=== PATIENT | male | born 1975 | race Two or more races ===

== ENCOUNTER 2018-02-04 16:06 | Emergency (ER) | payer MEDICAID ==
[~2018-02-04 16:06] MED LIST: ASPI-1471 PO; ATOR20TA65 PO; B.AN1CAP2 PO; CIPR-345 PO; FAMO20TA28 PO; HYDR-4309 PO; HYDR-6016 PO; IBUP800T37 PO; METR-1 PO; ONDA8TAB94 PO
[2018-02-04] MEDS ORDERED: ATRO/SCOPOL/HYOSCY/PB 5 ML ELX PO ONE (16:50)
[2018-02-04] MEDS ORDERED: FAMOTIDINE 10 MG/ML SDV IVP ONE (16:50)
[2018-02-04] MEDS ORDERED: MAG HYD/AL HYD/SIMETH 30ML UDC PO ONE (16:50)
[2018-02-04] MEDS ORDERED: LIDOCAINE 2% VISC SLN 15ML UDC PO ONE (16:50)
[2018-02-04 17:01] LABS: PLATELET COUNT, AUTOMATED 310 K/uL (150-450)
--- NOTE | 2018-02-04 17:46 | RADIOLOGY IMAGING REPORT ---
FACILITY: [facility] - [place] PATIENT NAME: Abdullahi Oliveira : 1975 MR: [id number] V: [id number] EXAM DATE: ORDERING PHYSICIAN: NEHEMIAH MALIN TECHNOLOGIST: Location: [facility] - [place] Patient: Abdullahi Oliveira : 1975 Visit/Account:[id number] Date of Sevice: 02/04/2018 Exam type: ANKLE 3 VIEW MIN RIGHT History: pain after twisting it Comparison: None. Findings: There is moderate soft tissue spine about the right ankle. There is no evidence of acute fracture or dislocation. The ankle mortise appears intact IMPRESSION: 1. Moderate soft tissue swelling about the right ankle although no gross evidence of acute fracture or dislocation Report Dictated By: Medina Clarke MD at 02/04/2018 5:43 PM Report E-Signed By: Medina Clarke MD at 02/04/2018 5:43 PM WSN:[email or web address]
--- NOTE | 2018-02-04 17:46 | RADIOLOGY IMAGING REPORT ---
[place] [facility] [place] NAME: Abdullahi Oliveira : 1975 MR: [id number] V: [id number] EXAM DATE: ORDERING PHYSICIAN: NEHEMIAH MALIN TECHNOLOGIST: Location: [facility] Patient: Abdullahi Oliveira : 1975 Visit/Account:[id number] Date of Sevice: 02/04/2018 Exam type: FOOT 3 VIEW RIGHT History: pain after twisting it Comparison: October 01, 2015. Findings: Minor degenerative changes at the right first MTP joint again seen. There is no evidence of acute fr acture or dislocation involving the right foot. No radiopaque soft tissue foreign body seen IMPRESSION: 1. No acute osteoarticular abnormality right foot is seen Report Dictated By: Medina Clarke MD at 02/04/2018 5:41 PM Report E-Signed By: Medina Clarke MD at 02/04/2018 5:43 PM WSN:[email or web address]
--- NOTE | 2018-02-04 18:05 | ER Report ---
History and Physical Time Seen By MD: 16:50 Hx. of Stated Complaint: patient state he has been having really bad heartburn, when he drinks he feels bubbles in epigastric region and then a burning sensation come up his throat. HPI/ROS CHIEF COMPLAINT: epigastric pain HISTORY OF PRESENT ILLNESS: PT here for evaluation of epigastric pain. Pt states that he has had heart burn on and off for years but this feeling different. Pt sates pain in last few days has been worse. Unable to eat or drink due to pain. Pt today attempted rice at lunch and pain became severe. no fevers or chills. Has had increased pain when sleeping or lying flat. no hx of cardiac ds for patient but dad had mi. Pt also states that he twisted his right foot a few days ago and would like that looked at it as well. REVIEW OF SYSTEMS: Constitutional: No fever, no chills. Eyes: No discharge. ENT: No sore throat. Cardiovascular: No chest pain, no palpitations. Respiratory: No cough, no shortness of breath. Gastrointestinal: + abdominal pain, + nausea, no vomiting. Genitourinary: No hematuria. Musculoskeletal: No back pain. Skin: No rashes. Neurological: No headache. Allergies: Coded Allergies: No Known Drug Allergies (Unverified , 02/04/18) Home Meds Active Scripts Omeprazole (OMEPRAZOLE) 20 Mg Capsule., 1 CAP PO BID, #60 CAP Prov:NEHEMIAH MALIN V DO 02/04/18 Amoxicillin 500 Mg Tab (AMOXICILLIN 500 MG TAB) 500 Mg Tablet, 2 TAB PO Q12H, # 56 TAB Prov:NEHEMIAH MALIN V DO 02/04/18 Sulfamethoxazole/Trimet 800-160 Mg Tab (BACTRIM DS TABLET) 1 Each Tablet, 1 TAB PO Q12H, #28 TAB Prov:NEHEMIAH MALIN V DO 02/04/18 Reported Medications Famotidine (PEPCID) 20 Mg Tablet, 20 MG PO QAM, #10 TAB 10/01/15 Discontinued Reported Medications Atorvastatin Calcium (ATORVASTATIN CALCIUM) 20 Mg Tablet, 1 TAB PO QPM, TAB 10/01/15 Aspirin (ASPIR 81) 81 Mg Tablet., 81 MG PO QDAY, TAB 10/01/15 Discontinued Scripts Hydrocodone Bit/Acetaminophen (NORCO 5-325 TABLET) 1 Each Tablet, 1 EACH PO Q4H Y for PAIN, #12 TAB Prov:JARON YUAN DO 11/04/16 Ibuprofen (IBUPROFEN) 800 Mg Tablet, 1 TAB PO Q8H, #30 TAB Prov:LUIS EDUARDO SILVER LEGAL CONSULTANT 10/01/15 Past Medical/Surgical History Pmhx: hyperlipid, diverticulitis Pshx: non contrib Reviewed Nurses Notes: Yes Old Medical Records Reviewed: Yes Hx Smoking: No Hx Substance Use Disorder: No Hx Alcohol Use: No Constitutional Vital Sign - Last 24 Hours 02/04/18 02/04/18 02/04/18 02/04/18 16:41 16:41 16:51 17:00 Temp 98.0 Pulse 90 94 Resp 16 11 B/P (MAP) 144/81 144/81 (102) 136/95 (109) Pulse Ox 94 O2 Delivery Room Air 02/04/18 02/04/18 02/04/18 02/04/18 17:06 17:21 17:30 17:36 Pulse 87 85 79 Resp 14 25 B/P (MAP) 139/98 (112) Pulse Ox 92 96 02/04/18 02/04/18 02/04/18 02/04/18 17:51 18:00 18:10 18:25 Pulse 71 74 83 Resp 11 23 21 B/P (MAP) 131/95 (107) Pulse Ox 98 93 93 02/04/18 02/04/18 02/04/18 18:30 18:50 19:00 Pulse 80 Resp 10 B/P (MAP) 140/96 (111) 122/74 (90) Pulse Ox 97 Physical Exam General Appearance: The patient is alert, has no immediate need for airway protection and no signs of toxicity. Eyes: Pupils equal and round no pallor or injection, EOMI ENT: no pharyngeal erythema or exudates, Mucous membranes are moist, Respiratory: There are no retractions, lungs are clear to auscultation. Cardiovascular: Regular rate and rhythm. pulses are equal and symmetrical Gastrointestinal: Abdomen is soft and non tender, no masses, bowel sounds normal, no guarding, no rigidity or rebound Neurological: Cranial nerves II-XII grossly intact, no sensory or motor loss Skin: Warm and dry, no rashes. Musculoskeletal: Neck is supple non tender, no vertebral tenderness Extremities are nontender, non swollen and have full range of motion. DIFFERENTIAL DIAGNOSIS: After history and physical exam differential diagnosis was considered for cholecystitis, pud, h pylori, gerd, pancreatitis. Medical Decision Making Data Points Result Diagram: 02/04/18 1652 02/04/18 1652 Laboratory Hematology Test 02/04/18 16:52 Red Blood Count 5.29 M/uL (4.00-5.60) Mean Corpuscular Volume 88.4 fL (80.0-96.0) Mean Corpuscular Hemoglobin 30.5 pg (26.0-33.0) Mean Corpuscular Hemoglobin Concent 34.6 g/dL (32.0-36.0) Red Cell Distribution Width 13.7 % (11.5-14.5) Mean Platelet Volume 8.8 fL (7.2-11.1) Neutrophils (%) (Auto) 58.5 % (39.4-72.5) Lymphocytes (%) (Auto) 27.9 % (17.6-49.6) Monocytes (%) (Auto) 10.1 % (4.1-12.4) Eosinophils (%) (Auto) 2.2 % (0.4-6.7) Basophils (%) (Auto) 1.3 % (0.3-1.4) Nucleated RBC Relative Count (auto) 0.2 /100WBC Neutrophils # (Auto) 6.6 K/uL (2.0-7.4) Lymphocytes # (Auto) 3.1 K/uL (1.3-3.6) Monocytes # (Auto) 1.1 K/uL (0.3-1.0) Eosinophils # (Auto) 0.2 K/uL (0.0-0.5) Basophils # (Auto) 0.1 K/uL (0.0-0.1) Nucleated RBC Absolute Count (auto) 0.02 K/uL Sodium Level 140 mmol/L (137-145) Potassium Level 3.4 mmol/L (3.5-5.0) Chloride Level 104 mmol/L (98-107) Carbon Dioxide Level 24 mmol/L (22-30) Blood Urea Nitrogen 15 mg/dl (9-21) Creatinine 1.10 mg/dl (0.66-1.25) Glomerular Filtration Rate Calc > 60.0 Random Glucose 116 mg/dl (75-110) Calcium Level 9.1 mg/dl (8.4-10.2) Total Bilirubin 0.7 mg/dl (0.2-1.3) Aspartate Amino Transf (AST/SGOT) 33 U/L (0-35) Alanine Aminotransferase (ALT/SGPT) 47 U/L (0-56) Alkaline Phosphatase 84 U/L (0-126) Total Protein 8.0 g/dl (6.3-8.2) Albumin 4.0 g/dl (3.5-5.0) Lipase 83 U/L (23-300) Helicobacter pylori IgG Antibody Positive (NEGATIVE) Chemistry Test 02/04/18 16:52 White Blood Count 11.2 k/uL (4.5-11.0) Red Blood Count 5.29 M/uL (4.00-5.60) Hemoglobin 16.2 g/dL (14.0-18.0) Hematocrit 46.8 % (42.0-52.0) Mean Corpuscular Volume 88.4 fL (80.0-96.0) Mean Corpuscular Hemoglobin 30.5 pg (26.0-33.0) Mean Corpuscular Hemoglobin Concent 34.6 g/dL (32.0-36.0) Red Cell Distribution Width 13.7 % (11.5-14.5) Platelet Count 310 K/uL (150-450) Mean Platelet Volume 8.8 fL (7.2-11.1) Neutrophils (%) (Auto) 58.5 % (39.4-72.5) Lymphocytes (%) (Auto) 27.9 % (17.6-49.6) Monocytes (%) (Auto) 10.1 % (4.1-12.4) Eosinophils (%) (Auto) 2.2 % (0.4-6.7) Basophils (%) (Auto) 1.3 % (0.3-1.4) Nucleated RBC Relative Count (auto) 0.2 /100WBC Neutrophils # (Auto) 6.6 K/uL (2.0-7.4) Lymphocytes # (Auto) 3.1 K/uL (1.3-3.6) Monocytes # (Auto) 1.1 K/uL (0.3-1.0) Eosinophils # (Auto) 0.2 K/uL (0.0-0.5) Basophils # (Auto) 0.1 K/uL (0.0-0.1) Nucleated RBC Absolute Count (auto) 0.02 K/uL Glomerular Filtration Rate Calc > 60.0 Calcium Level 9.1 mg/dl (8.4-10.2) Total Bilirubin 0.7 mg/dl (0.2-1.3) Aspartate Amino Transf (AST/SGOT) 33 U/L (0-35) Alanine Aminotransferase (ALT/SGPT) 47 U/L (0-56) Alkaline Phosphatase 84 U/L (0-126) Total Protein 8.0 g/dl (6.3-8.2) Albumin 4.0 g/dl (3.5-5.0) Lipase 83 U/L (23-300) Helicobacter pylori IgG Antibody Positive (NEGATIVE) EKG/Imaging EKG Interpretation NSR @ 85 no acute changes ED Course/Re-evaluation Clinical Indication for ER IV: IV Access ED Course labs and us 02/04/2018 6:04:26 pm H pylori is positive. will begin treatment when back from ultrasound 02/04/2018 6:38:29 pm Pts labs positive for H Pylori. awaiting US report. If negative will need to follow up with Dr. Bal for endoscopy as outpt. Pt 02/04/2018 6:57:56 pm pts xray does not show a fracture. will place in airsplint. Pt states he has been using motrin for should injury and foot so will have him stop. will start him on topical Decision to Disposition Date: Feb 04, 2018 Decision to Disposition Time: 19:17 Depart Departure Latest Vital Signs Vital Signs Date Time Temp Pulse Resp B/P (MAP) Pulse Ox O2 Delivery O2 Flow Rate FiO2 02/04/18 19:00 122/74 (90) 02/04/18 18:50 80 10 97 02/04/18 16:41 98.0 Room Air Impression: Primary Impression: Helicobacter pylori (H. pylori) Condition: Improved Disposition: HOME OR SELF-CARE Referrals: DARIN WITT PA-C (PCP) [facility] 5 Days MELIZA BAL MD 5 Days New Scripts Diclofenac Sodium 1% Gel (VOLTAREN 1% GEL) 100 Gm Gel..gram. 4 G TOP Q6H Y for PAIN, #1 TUBE Prov: NEHEMIAH MALIN DO 02/04/18 Omeprazole (OMEPRAZOLE) 20 Mg Capsule.dr 1 CAP PO BID, #60 CAP Prov: VICTORIANOSUMITNEHEMIAH V DO 02/04/18 Amoxicillin 500 Mg Tab (AMOXICILLIN 500 MG TAB) 500 Mg Tablet 2 TAB PO Q12H, #56 TAB Prov: VICTORIANOSUMITNEHEMIAH Fields DO 02/04/18 Sulfamethoxazole/Trimet 800-160 Mg Tab (BACTRIM DS TABLET) 1 Each Tablet 1 TAB PO Q12H, #28 TAB Prov: NEHEMIAH MALIN DO 02/04/18 Patient Instructions: Helicobacter Pylori (GEN) Additional Instructions: Your blood work shows that you are positive for H. Pylori which is a bacteria that can cause peptic ulcers. You will need to take the following medications to help eradicate the bacteria: omeprazole (prilosec) twice a day Biaxin 500mg twice a day. Amoxil 1000mg twice a day Follow up with Dr. Bal to schedule an EGD (esophageal gastric scope) to visually look at your stomach Your xray of your ankle/foot did not show any fractures but soft tissue swelling. We are placing you in a splint. Ice, elevate your foot. Due to your stomach I do not recommend using NSAIDs such as motrin/advil/ibuprofen for your foot. You may use tylenol 650mg every 4 hours. NEHEMIAH MALIN DO Feb 04, 2018 18:05
[2018-02-04] MEDS ORDERED: CLARITHROMYCIN 500 MG TAB PO ONE (18:40)
[2018-02-04] MEDS ORDERED: AMOXICILLIN 500 MG CAP PO ONE (18:40)
[2018-02-04] MEDS ORDERED: PANTOPRAZOLE SOD 40 MG TABEC PO ONE (18:40)
[2018-02-04] MEDS ORDERED: AMOX500T10 PO (18:47)
[2018-02-04] MEDS ORDERED: OMEP-125 PO (18:47)
[2018-02-04] MEDS ORDERED: SULF-198 PO (18:47)
[2018-02-04 19:00] VITALS: BP 122/74
--- NOTE | 2018-02-04 19:08 | RADIOLOGY IMAGING REPORT ---
FACILITY: [facility] PATIENT NAME: Abdullahi Oliveira : 1975 MR: [id number] V: [id number] EXAM DATE: ORDERING PHYSICIAN: NEHEMIAH MALIN TECHNOLOGIST: [place] [facility] [place]i Olive[place] : 1975 Visit/Account:[id number] Date of Sevice: 02/04/2018 GALLBLADDER COMPARISON: None. HISTORY: epigastric pain with eating TECHNIQUE: Gallardo scale ultrasound of the right upper quadrant was performed. FINDINGS: LIVER: Normal size, 15.2 cm craniocaudally, and morphology. Coarse, mildly echogenic parenchyma and system with hepatic steatosis with nodular areas of fat sparing adjacent to the gallbladder fossa. T here is hepatopedal flow in the main portal vein as expected. GALLBLADDER: Normal size. No gallstones, wall thickening or pericholecystic fluid. Sonographic Mur phy's sign was reportedly negative. BILE DUCTS: No intrahepatic or extrahepatic bile duct dilatation. Common bile duct measures 4 mm. PANCREAS: Could not be significantly visualized because of body habitus. RIGHT KIDNEY: Survey sagittal view of the right kidney shows no hydronephrosis. Normal right kidney intrarenal resistive index of 0.49. OTHER: Negative. IMPRESSION: 1. Normal gallbladder with a negative sonographic Costa sign. 2. Hepatic steatosis with fat sparing adjacent to the gallbladder fossa. 3. Pancreas could not be seen. Report Dictated By: Alin Woodall at 02/04/2018 7:02 PM Report E-Signed By: Alin Woodall at 02/04/2018 7:05 PM WSN:[email or web address]
[2018-02-04] MEDS ORDERED: DICL100G39 TOP (19:19)
--- NOTE | 2018-02-05 08:19 | EKG ---
FACILITY: [facility] [place] PATIENT NAME: LISSET DICKINSON : [id number] MR: [id number] V: [id number] EXAM DATE: ORDERING PHYSICIAN: IVONNE CHEUNG TECHNOLOGIST: RE Copeland Reason : CP Blood Pressure : / mmHG Vent. Rate : 085 BPM Atrial Rate : 085 BPM P-R Int : 140 ms QRS Dur : 086 ms QT Int : 362 ms P-R-T Axes : 029 048 012 degrees QTc Int : 430 ms Normal sinus rhythm Normal ECG No previous ECGs available Confirmed by FRANCISCO FAUST ([id number]) on 02/05/2018 4:14:00 PM Referred By: Confirmed By:FRANCISCO FAUST
== END 2018-02-04 19:26 | disposition home or self-care (01) ==
LOC: ER 16:42
DX: A04.8 Other specified bacterial intestinal infections (principal)
CPT/HCPCS: 73610; 73630; 76705; 83690; 85025; 86677; 93005; 96374; 99284; J3490; L1930; 82040; 82247; 82310; 82374; 82435; 82565; 82947; 84075; 84132; 84155; 84295; 84450; 84460; 84520; S0028